=== PATIENT | female | born 1970 | race Caucasian/White ===

== ENCOUNTER 2020-04-01 14:10 | Emergency (ER) | payer OTHER, MEDICAID ==
[~2020-04-01] VITALS: Ht 160 cm; Wt 75.0 kg
[2020-04-01 14:50] VITALS: BP 136/91
--- NOTE | 2020-04-01 15:15 | PHYS DOC ---
Past Medical History Past Medical History: Depression, High Cholesterol, Migraines Additional Past Medical Histor: CHRONIC BACK PAIN Past Surgical History: Cholecystectomy, Hysterectomy, Lumbar Laminectomy, Tonsillectomy Additional Past Surgical Histo: X 2 BACK SURGERIES,RIGHT KNEE Smoking Status: Current Every Day Smoker Alcohol Use: Occasionally Drug Use: None General Adult EDM: Chief Complaint: UPPER EXTREMITY INJURY HPI: HPI: 49-year-old female past medical history of chronic back pain, migraine headaches and depression, presents to the ED from work ([employer] employee) with c/o atraumatic right "shoulder pain," reports over the tip of her shoulder blade, started while patient was removing a heavy object off the shelf. Pain is worsened with right upper extremity shoulder movement including extension and flexion. No pain or swelling over the actual shoulder joint. No associated radiculopathy, sensory deficits or motor weakness. Is right-hand dominant. No prior injury to the right upper extremity. States her employee applied Bio[employer]. Is on baclofen for chronic back pain. Requests Soma prescription. States ibuprofen "messes up my stomach," "tylenol makes my liver hurt," and reports allergy to tramadol. Denies any head injury or LOC. Review of Systems: Review of Systems: Constitutional: Denies fever or chills. [] Eyes: Denies change in visual acuity. [] HENT: Denies nasal congestion or sore throat. [] Respiratory: Denies cough or shortness of breath. [] Cardiovascular: Denies chest pain or edema. [] GI: Denies abdominal pain, nausea, vomiting, bloody stools or diarrhea. [] : Denies dysuria or hematuria Musculoskeletal: Denies midline back pain or joint pain. [] Integument: Denies rash or crepitus Neurologic: Denies headache, focal weakness or sensory changes. [] Endocrine: Denies polyuria or polydipsia. [] Lymphatic: Denies swollen glands. [] Psychiatric: Denies depression or anxiety. [] Heart Score: Risk Factors: Risk Factors: DM, Current or recent (<one month) smoker, HTN, HLP, family history of CAD, obesity. Risk Scores: Score 0 - 3: 2.5% MACE over next 6 weeks - Discharge Home Score 4 - 6: 20.3% MACE over next 6 weeks - Admit for Clinical Observation Score 7 - 10: 72.7% MACE over next 6 weeks - Early Invasive Strategies Allergies: Allergies: Allergies Coded Allergies Type Severity Reaction Last Updated Verified Penicillins Allergy Severe HIVES 03/29/15 Yes butorphanol Allergy Severe HIVES 03/29/15 Yes clindamycin Allergy Severe HIVES 03/29/15 Yes levofloxacin Allergy Severe SWELLING 03/29/15 Yes ketorolac Allergy Intermediate VOMITING 03/29/15 Yes topiramate Allergy Intermediate VOMITING 03/29/15 Yes tramadol Allergy Intermediate HIVES 03/29/15 Yes Physical Exam: PE: Constitutional: Well developed, well nourished, no acute distress, non-toxic appearance. HENT: Normocephalic, atraumatic, Eyes: EOMI, conjunctiva normal, no discharge. Neck: Normal range of motion, supple, Cardiovascular: S1/2 present, regular rhythm Lungs & Thorax: Speaking in full sentences, bilateral equal chest rise, no tachypnea or increased work of breathing Abdomen: soft, no tenderness, Skin: Warm, dry, no erythema, no rash. [] Back: No tenderness, no CVA tenderness. [] Extremities: FROM RUE shoulder/elbow/wrist, equal radial pulses, no shoulder joint pain/swelling, pain over erector spina muscles-right thoracic parapsinal region and right trapezius muscle, no rash, 5/5 UE muscle strength Neurologic: Alert and oriented X 3, normal motor function, normal sensory function, no focal deficits noted. [] Psychologic: Affect normal, judgement normal, mood normal. [] EKG: EKG: [] Radiology/Procedures: Radiology/Procedures: [] Course & Med Decision Making: Course & Med Decision Making Pertinent Labs and Imaging studies reviewed. (See chart for details) Concern for mild, atraumatic musculoskeletal injury with no neurologic deficits. Will treat conservatively with [id number] analgesia, Lidoderm patches and muscle relaxers. Advised against drinking or driving with muscle relaxers. Will discharge home with strict ED return precautions were given for upper extremity weakness, decreased muscle strength, sensory deficits, radiculopathy or paralysis.. Encouraged urgent outpatient follow-up with PMD and orthopedic surgery if necessary-may recommend further nonemergent imaging. Life- threatening processes were considered but are low suspicion at this time, given history, physical exam and ED workup. Pt was educated on all prescription medications and adverse effects. All patient's questions were answered and pt was stable at time of discharge. Life/limb-threatening differential includes but is not limited to, intracranial hemorrhage, diffuse axonal injury, spinal cord syndrome, unstable cervical fracture or SCIWORA, fractures or joint dislocations, neurovascular injuries, organ injury or laceration, pneumothorax, pneumoperitoneum, pericardial tamponade, unstable pelvic fracture, compartment syndrome, flail chest or respiratory distress, burn injury or asphyxiation I spoken with the patient and her caregivers. I explained the patient's condition, diagnoses and treatment plan based on the information available to me at this time. I have answered the patient and her caregiver's questions and addressed any concerns. The patient and her caregivers have a good understanding of patient's diagnosis, condition and treatment plan as can be expected at this point. Vital signs have been stable. Patient's condition is stable and appropriate for discharge from the emergency department. Patient will pursue further outpatient evaluation with primary care physician or other designated or consulting physician as outlined in the discharge instructions. The patient and/or caregivers are agreeable to this plan of care and follow-up instructions have been explained in detail. The patient and/or caregivers have received these instructions in written form and have expressed an understanding of the discharge instructions. The patient and/or caregivers are aware that any significant change of condition or worsening of symptoms should prompt immediate return to this or the closest emergency department or call to 611. Vernon Disclaimer: Vernon Disclaimer: This electronic medical record was generated, in whole or in part, using a voice recognition dictation system. Departure Departure Impression: Primary Impression: Upper back pain on right side Additional Impression: Musculoskeletal back pain Disposition: 01 DC HOME SELF CARE/HOMELESS Condition: STABLE Referrals: KRANTHI AMES (PCP) in 5-7 days for re-eval Patient Instructions: Musculoskeletal Pain, RICE - Routine Care for Injuries Additional Instructions: FOLLOW UP WITH ORTHOPEDICS: Orthopaedic Sports Medicine Orthopaedic Surgery [facility] Address: [address] [place] [id number] EMERGENCY DEPARTMENT GENERAL DISCHARGE INSTRUCTIONS Thank you for coming to [facility] Emergency Department (ED) today and trusting us with you care. We trust that you had a positive experience in our Emergency Department. If you wish to speak to the department management, you may call the Director at [phone]. YOUR FOLLOW UP INSTRUCTIONS ARE FOLLOWS: 1. Do you have a private Doctor? If you do not have a private doctor, please ask for a resource list of physicians or clinics that may be able to assist you with follow up care. 2. The Emergency Physicain has interpreted your x-rays. The X-Ray specialist will also review them. If there is a change in the findings, you will be notified in 48 hours when at all possible. 3. A lab test or culture has been done, your results will be reviewed and you will be notified if you need a change in treatment. ADDITIONAL INSTRUCTIONS AND INFORMATION: 1. Your care today has been supervised by a physician who is specially trained in emergency care. Many problems require more than one evaluation for a complete diagnosis and treatment. We recommend that you schedule your follow up appointment as recommended to ensure complete treatment of you illness or injury. If you are unable to obtain follow up care and continue to have a problem, or if your condition worsens, we recommend that you return to the ED. 2. We are not able to safely determine your condition over the phone nor are we able to give sound medical advice over the phone. For these safety reasons, if you call for medical advice we will ask you to come to the ED for further evaluation. 3. If you have any questions regarding these discharge instructions please call the ED at [phone]. SAFETY INFORMATION: In the interest of safety, wellness, and injury prevention; we encourage you to wear your sealbelt, if you smoke; quite smoking, and we encourage family to use a protective helmet for bicycling and other sporting events that present an increased risk for head injury. IF YOUR SYMPTOMS WORSEN OR NEW SYMPTOMS DEVELOP, OR YOU HAVE CONCERNS ABOUT YOUR CONDITION; OR IF YOUR CONDITION WORSENS WHILE YOU ARE WAITING FOR YOUR FOLLOW UP APPOINT MENT; EITHER CONTACT YOUR PRIMARY CARE DOCTOR, THE PHYSICIAN WHOSE NAME AND NUMBER YOU WERE GIVEN, OR RETURN TO THE ED IMMEDIATELY. Scripts Lidocaine (Lido Jack) 1 Each Adh..patch 1 EACH TP DAILY for 5 Days, #5 PATCH Apply 1 patch for 12 hours, remove for another 12 hours. May repeat, 1 patch per day as instructed above. Prov: MANE MCCARTHY DO 04/01/20 Methocarbamol (ROBAXIN-750) 750 Mg Tablet 1 TAB PO TID for 30 Days, #20 TAB 0 Refills Prov: MANE MCCARTHY DO 04/01/20 MANE MCCARTHY DO Apr 01, 2020 15:15
[2020-04-01] MEDS ORDERED: METH-38 PO (15:23)
[2020-04-01] MEDS ORDERED: LIDO1ADH78 TP (15:23)
== END 2020-04-01 15:37 | disposition home or self-care (01) ==
LOC: ER 14:10
DX: M54.6 Pain in thoracic spine (principal); M25.511 Pain in right shoulder; E78.00 Pure hypercholesterolemia, unspecified; F32.9 Major depressive disorder, single episode, unspecified; G43.909 Migraine, unspecified, not intractable, without status migrainosus; G89.29 Other chronic pain; F17.200 Nicotine dependence, unspecified, uncomplicated; Z90.49 Acquired absence of other specified parts of digestive tract; Z90.710 Acquired absence of both cervix and uterus; Z90.89 Acquired absence of other organs; Z98.890 Other specified postprocedural states; Z88.0 Allergy status to penicillin; Z88.1 Allergy status to other antibiotic agents; Z88.8 Allergy status to other drugs, medicaments and biological substances; Z88.6 Allergy status to analgesic agent
CPT/HCPCS: 99283